=== PATIENT | female | born 1995 ===

== ENCOUNTER 2022-10-18 08:49 | Outpatient (CLI) | payer OTHER | END 2022-10-18 09:42 | disposition home or self-care (01) | LOC: PRENATAL 08:49 | PROVIDERS: ATTEND Obstetrics & Gynecology Maternal & Fetal Medicine | DX: O36.90X0 Maternal care for fetal problem, unspecified, unspecified trimester, not applicable or unspecified (principal); Z3A.13 13 weeks gestation of pregnancy ==

== ENCOUNTER 2022-12-07 08:25 | Outpatient (CLI) | payer OTHER | END 2022-12-07 09:32 | disposition home or self-care (01) | LOC: PRENATAL 08:25 | PROVIDERS: ATTEND Obstetrics & Gynecology Maternal & Fetal Medicine | DX: O35.9XX0 Maternal care for (suspected) fetal abnormality and damage, unspecified, not applicable or unspecified (principal); O35.3XX0 Maternal care for (suspected) damage to fetus from viral disease in mother, not applicable or unspecified; Z3A.20 20 weeks gestation of pregnancy ==

== ENCOUNTER 2023-02-28 09:25 | Outpatient (CLI) | payer OTHER | END 2023-02-28 10:55 | disposition home or self-care (01) | LOC: PRENATAL 09:25 | PROVIDERS: ATTEND Obstetrics & Gynecology Maternal & Fetal Medicine | DX: O26.849 Uterine size-date discrepancy, unspecified trimester (principal); O36.8199 Decreased fetal movements, unspecified trimester, other fetus; Z3A.32 32 weeks gestation of pregnancy ==

== ENCOUNTER 2023-03-26 14:43 | Outpatient (CLI) | payer OTHER | END 2023-03-26 17:52 | disposition home or self-care (01) | LOC: PRENATAL 14:43 | PROVIDERS: ATTEND Obstetrics & Gynecology Maternal & Fetal Medicine | DX: O26.849 Uterine size-date discrepancy, unspecified trimester (principal); O36.8199 Decreased fetal movements, unspecified trimester, other fetus; O40.1XX0 Polyhydramnios, first trimester, not applicable or unspecified; Z3A.36 36 weeks gestation of pregnancy ==

== ENCOUNTER 2025-04-29 07:00 | Day surgery (SDC) | payer OTHER ==
[2025-04-28 16:36] LABS: BASO % 0.4 % (0.1-1.2); EOS # 0.29 (0.04-0.54); EOS % 2.8 % (0.7-7.0); LYMPH # 1.91 (1.18-3.74); LYMPH % 18.3 % (19.3-53.1); MEAN PLATELET VOLUME 8.60 fl (9.4-12.4); MONO # 0.84 (0.24-0.82); MONO % 8.1 % (4.7-12.5); NEUT # 7.31 (1.56-6.13); NEUT % 70.1 % (34.0-71.1); RED CELL DISTRIBUTION WIDTH 14.6 % (11.6-14.4)
[2025-04-28 16:57] LABS: INR < 0.93
[2025-04-29] MEDS ORDERED: PROMETHAZINE HCL 50 MG/ML AMPUL IM ONE (13:15)
[2025-04-29] MEDS ORDERED: MORPHINE SULFATE 4 MG/ML VIAL IV PRN (13:15)
[2025-04-29] MEDS ORDERED: MORPHINE SULFATE 4 MG/ML VIAL IV ONE (13:35)
[2025-04-29] MEDS ORDERED: CEFAZOLIN SODIUM 1,000 MG VIAL IV ONE (13:45)
[2025-04-29] MEDS ORDERED: POVIDONE-IODINE 118 ML BOTT TOP ONE (13:45)
== END 2025-04-29 15:35 | disposition home or self-care (01) ==
LOC: CIR.AMB 07:00
PROVIDERS: ATTEND Obstetrics & Gynecology Maternal & Fetal Medicine
DX: O02.1 Missed abortion (principal)

== ENCOUNTER → 2025-06-25 08:57 | Outpatient (CLI) | payer OTHER ==
[2025-06-25 09:56] LABS: BASO % 0.8 % (0.1-1.2); EOS # 0.43 (0.04-0.54); EOS % 6.9 % (0.7-7.0); LYMPH # 1.68 (1.18-3.74); LYMPH % 26.8 % (19.3-53.1); MEAN PLATELET VOLUME 8.90 fl (9.4-12.4); MONO # 0.41 (0.24-0.82); MONO % 6.5 % (4.7-12.5); NEUT # 3.69 (1.56-6.13); NEUT % 58.8 % (34.0-71.1); RED CELL DISTRIBUTION WIDTH 12.6 % (11.6-14.4)
[2025-06-25 11:01] LABS: % SATURACION 32.5 % (15-50); ALT/SGPT 16.0 U/L (12-78); AST/SGOT 13.0 U/L (15-37); BILIRUBIN TOTAL 0.44 mg/dL (0.3-1.2); BUN CREA RATIO 23.0 (7.0-25.0); CREATININE SERUM 0.52 mg/dL (0.55-1.02); FE 110.0 ug/dl (50-170); GFR 138.46; GLOBULINA 3.3 G/DL (2.4-3.5); GLUCOSE FASTING 83.0 mg/dL (65-100); LDH 142.0 U/L (84-246); OSMOLALITY SERUM 276.0 MOSM/KG (275-295)
[2025-06-25 11:45] LABS: FOLIC ACID > 20.00 ng/ml (4.78-20)
[2025-06-26 07:11] LABS: COMPLEMENT C3 121 mg/dL (82-167); COMPLEMENT C4 21 mg/dL (12-38)
[2025-06-26 13:08] LABS: CYCLIC CITRULLINE PEPTIDE 14 units (0-19)
[2025-06-26 15:12] LABS: DNA AB DOUBLE STRABDED < 1 IU/mL (0-9)
== END | disposition home or self-care (01) ==
LOC: LAB 08:57
PROVIDERS: ATTEND Internal Medicine Hematology & Oncology
DX: D50.8 Other iron deficiency anemias (principal); I10 Essential (primary) hypertension; R74.02 Elevation of levels of lactic acid dehydrogenase [LDH]; K76.89 Other specified diseases of liver; D51.3 Other dietary vitamin B12 deficiency anemia; M32.9 Systemic lupus erythematosus, unspecified; M06.9 Rheumatoid arthritis, unspecified; M05.9 Rheumatoid arthritis with rheumatoid factor, unspecified

== ENCOUNTER → 2025-07-23 10:09 | Outpatient (CLI) | payer OTHER ==
[2025-07-23 11:17] LABS: INR 0.96
[2025-07-23 11:19] LABS: COL ADP 75.0 SECONDS (56-102); COL EPI 81.0 SECONDS (82-175)
== END | disposition home or self-care (01) ==
LOC: LAB 10:09
PROVIDERS: ATTEND Internal Medicine Hematology & Oncology
DX: D68.8 Other specified coagulation defects (principal); E56.1 Deficiency of vitamin K; D69.1 Qualitative platelet defects